=== PATIENT | male | born 1975 | race Caucasian/White ===

== ENCOUNTER 2019-09-15 23:38 | Emergency (ER) | payer SELFPAY ==
[~2019-09-15] VITALS: Ht 185.4 cm; Wt 83.9 kg
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
--- NOTE | 2019-09-16 00:02 | NUR ---
PATIENT TRANSPORTED TO RADIOLOGY FOR CT SCAN.
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
[2019-09-16] MEDS ORDERED: AMOX/CLAVULANATE 875 MG TABLET ONE (00:48)
[2019-09-16] MEDS ORDERED: HYDROCODONE/APAP 5/325MG 1 EACH TABLET ONE (00:48)
[2019-09-16] MEDS ORDERED: HYDROCODONE/APAP 5/325MG 1 EACH TABLET PO ONE (01:00)
[2019-09-16] MEDS ORDERED: AMOX/CLAVULANATE 875 MG TABLET PO ONE (01:00)
--- NOTE | 2019-09-16 01:05 | NUR ---
DISCHARGE INSTRUCTIONS GIVEN TO PATIENT, VERBALIZED UNDERSTANDING. PATIENT LEFT THE FACILITY AT THIS TIME AMBULATORY WITH FRIENDS AND POLICE OFFICERS.
[2019-09-16 01:06] VITALS: BP 141/97
== END 2019-09-16 01:06 | disposition home or self-care (01) ==
LOC: ER 23:41
DX: S02.2XXA Fracture of nasal bones, initial encounter for closed fracture (principal); S05.11XA Contusion of eyeball and orbital tissues, right eye, initial encounter; S09.8XXA Other specified injuries of head, initial encounter; Y04.8XXA Assault by other bodily force, initial encounter; Y93.89 Activity, other specified; Y92.89 Other specified places as the place of occurrence of the external cause; Y99.8 Other external cause status
CPT/HCPCS: 70450-TC; 70486-TC